=== PATIENT | female | born 1950 | race Caucasian/White ===

== ENCOUNTER 2016-04-15 10:14 | Outpatient (CLI) ==
[2016-04-15] MEDS ORDERED: PROLIA SUBCUT STA (10:35)
== END 2016-04-15 10:15 | disposition home or self-care (01) ==
LOC: OUTPT 10:14
PROVIDERS: ATTEND Internal Medicine
DX: M81.0 Age-related osteoporosis without current pathological fracture (principal)
CPT/HCPCS: 96372

== ENCOUNTER 2016-10-21 08:03 | Outpatient (CLI) ==
[2016-10-21] MEDS ORDERED: PROLIA SUBCUT STA (08:22)
[2016-10-21 08:26] VITALS: BP 108/70; TEMP 97.8
== END 2016-10-21 08:04 | disposition home or self-care (01) ==
LOC: OPMED 08:03
PROVIDERS: ATTEND Internal Medicine
DX: M81.0 Age-related osteoporosis without current pathological fracture (principal)
CPT/HCPCS: 96372

== ENCOUNTER 2017-05-07 09:17 | Outpatient (CLI) ==
[2017-05-07] MEDS ORDERED: PROLIA SUBCUT STA (09:34)
[2017-05-07 09:48] VITALS: BP 107/70; TEMP 98.4
== END 2017-05-07 09:18 | disposition home or self-care (01) ==
LOC: OPMED 09:17
PROVIDERS: ATTEND Internal Medicine
DX: M81.0 Age-related osteoporosis without current pathological fracture (principal)
CPT/HCPCS: 96372

== ENCOUNTER 2017-11-13 08:42 | Outpatient (CLI) ==
[2017-11-13 09:10] VITALS: BP 100/56; TEMP 98.2
[2017-11-13] MEDS ORDERED: PROLIA SUBCUT STA (09:12)
== END 2017-11-13 08:43 | disposition home or self-care (01) ==
LOC: OPMED 08:42
PROVIDERS: ATTEND Internal Medicine
DX: M85.80 Other specified disorders of bone density and structure, unspecified site (principal)
CPT/HCPCS: 96372

== ENCOUNTER 2018-04-20 07:27 | Outpatient (CLI) ==
--- NOTE | 2018-04-20 08:27 | US ---
EXAM: Right upper quadrant abdominal ultrasound. History: Right upper quadrant abdominal pain. Technique: Multiple sonographic images through the abdomen were obtained. Color duplex Doppler was used to interrogate vascular flow. Findings: The visualized pancreas demonstrates no gross abnormality. No abdominal ascites. No shadowing galls tones. Gallbladder wall is not thickened. There is antegrade flow within the main portal vein. The liver is slightly echogenic compared to the adjacent right renal cortex. Common bile duct measures 0.4 cm in caliber. Limited visualization of the right kidney demonstrates no evidence for hydronephr osis. Impression: 1. No gallstones. 2. Probable mild fatty liver
== END 2018-04-20 07:28 | disposition home or self-care (01) ==
LOC: RAD 07:27
PROVIDERS: ATTEND Internal Medicine
DX: R10.9 Unspecified abdominal pain (principal); K21.9 Gastro-esophageal reflux disease without esophagitis

== ENCOUNTER 2018-05-01 11:52 | Outpatient (CLI) ==
[2018-05-01] MEDS ORDERED: PROLIA SUBCUT STA (12:07)
[2018-05-01 12:20] VITALS: BP 101/65; TEMP 97.8
== END 2018-05-01 11:53 | disposition home or self-care (01) ==
LOC: OPMED 11:52
PROVIDERS: ATTEND Internal Medicine
DX: M81.0 Age-related osteoporosis without current pathological fracture (principal)
CPT/HCPCS: 96372

== ENCOUNTER 2018-11-03 10:47 | Outpatient (CLI) ==
[2018-11-03] MEDS ORDERED: PROLIA SUBCUT STA (10:57)
[2018-11-03 11:03] VITALS: BP 112/69; TEMP 97.3
== END 2018-11-03 10:48 | disposition home or self-care (01) ==
LOC: OPMED 10:47
PROVIDERS: ATTEND Internal Medicine
DX: M81.0 Age-related osteoporosis without current pathological fracture (principal)
CPT/HCPCS: 96372